=== PATIENT | male | born 1995 | race Caucasian/White ===

== ENCOUNTER 2016-08-29 08:37 | Emergency (ER) | payer SELFPAY ==
[~2016-08-29] VITALS: Ht 182.9 cm; Wt 77.0 kg
[~2016-08-29 08:37] MED LIST: CHLO.12%30 SWISH-SPIT; CLIN150 PO; IBUP800T23 PO; MMW SWISH-SPIT; PRED20 PO
[2016-08-29 08:40] VITALS: BP 127/70; PULSE 80; RESP 17; TEMP 98.6; O2SAT 99
[2016-08-29] MEDS ORDERED: NAPR500T PO (09:33)
[2016-08-29] MEDS ORDERED: PENI500T PO (09:33)
--- NOTE | 2016-08-29 09:34 | PD ---
HPI Chief Complaint: Oral / Dental Pain or Problem Time Seen by Provider: 09:23 Travel History International Travel<30 days: No Contact w/Intl Traveler<30days: No Traveled to known affect area: No History of Present Illness HPI This is a 20-year-old male who presents with 2 days of swelling in his right jaw , constant, moderate severity, associated with pain when he opens his mouth, with no fevers or chills. He is able to eat and drink without difficulty. [facility] Past Medical History Medical History: Denies Significant Hx Social History Alcohol Use: No Tobacco Use: Yes (/2 PPD) Substance Use: No Allergies-Medications (Allergen,Severity, Reaction): Coded Allergies: No Known Allergies (Unverified , 08/29/16) Reported Meds & Prescriptions Reported Meds & Active Scripts Active Deltasone (Prednisone) 20 Mg Tab 40 Mg PO DAILY 4 Days Ibuprofen 800 Mg Tab 800 Mg PO Q6H PRN Cleocin (Clindamycin HCl) 150 Mg Cap 450 Mg PO Q8HR 10 Days Magic Mouthwash-Diphenhy Formula (Lidocaine/Diphenhydr/Alum/Mg/Simeth) Ml 5 Ml SWISH-SPIT Q3H PRN MAGIC MOUTHWASH=MIX 1/3 VISCOUS LIDOCAINE(80 ML), 1/3 MAALOX(80 ML),AND 1/3 BENADRYL(80 ML) TO EQUAL 240 ML TOTAL VOLUME. Peridex Oral Rinse (Chlorhexidine Gluconate) 0.12 % Patricia 15 Ml SWISH-SPIT BID 10 Days Review of Systems General / Constitutional: No: Fever, Chills Cardiovascular: No: Chest Pain or Discomfort Respiratory: No: Shortness of Breath Physical Exam Narrative GENERAL:Well appearing, no acute distress SKIN: Warm and dry. HEAD: Atraumatic. Normocephalic. EYES: Pupils equal and round. No injection or drainage. ENT: Fractured right mandibular molar old in appearance with tenderness adjacent to the tooth, swelling of the right mandible with no submandibular fullness. Handling secretions without difficulty. NECK: Trachea midline. CARDIOVASCULAR: Regular rate and rhythm. No murmur appreciated. RESPIRATORY: Clear to auscultation. Breath sounds equal bilaterally. GASTROINTESTINAL: Abdomen soft, non-tender, nondistended. MUSCULOSKELETAL: No obvious deformities. NEUROLOGICAL: Awake and alert. No obvious cranial nerve deficits. Moving all extremities. PSYCHIATRIC: Appropriate mood and affect; insight and judgment normal. Data Data Last Documented VS Vital Signs Date Time Temp Pulse Resp B/P Pulse Ox O2 Delivery O2 Flow Rate FiO2 08/29/16 08:40 98.6 80 17 127/70 99 MDM Medical Decision Making Medical Screen Exam Complete: Yes Emergency Medical Condition: Yes Differential Diagnosis Dental abscess, Leonides angina, sialoadenitis Narrative Course This is a 20-year-old male who presents to the emergency department with swelling and pain in his right jaw associated with an old fractured molar. I advised the patient that he likely requires dental intervention. He was placed on antibiotics and anti-inflammatories. At this time I don't see any signs of Leonides angina or severe infection. Diagnosis Primary Impression: Dental abscess Additional Instructions: If you develop increasing swelling below the chin or jaw, difficulty swallowing or difficulty breathing return to the emergency room. Follow-up with a dentist as soon as possible. Complete your antibiotics. Med/Other Pt SpecificInfo: Prescription(s) given Scripts Naproxen 500 Mg [id number] Mg PO BID PRN (PAIN SCALE 4 TO 10) #20 TAB Prov:Marline Rojas MD 08/29/16 Penicillin V Potassium 500 Mg [id number] Mg PO Q6H 7 Days Prov:Marline Rojas MD 08/29/16 Disposition: 01 DISCHARGE HOME Condition: Stable Marline Rojas MD Aug 29, 2016 09:33
== END 2016-08-29 10:05 | disposition home or self-care (01) ==
LOC: NEPB 08:37
DX: K04.7 Periapical abscess without sinus (principal); F17.200 Nicotine dependence, unspecified, uncomplicated
CPT/HCPCS: 99283